=== PATIENT | male | born 2005 | race Hispanic/Latino ===

== ENCOUNTER 2023-08-08 16:55 | Emergency (ER) | payer MEDICAID, OTHER ==
[~2023-08-08] VITALS: Ht 175.3 cm; Wt 90.7 kg
[2023-08-08 17:00] VITALS: BP 126/67; PULSE 62; RESP 14; O2SAT 99
== END 2023-08-08 18:13 | disposition left against medical advice (07) ==
LOC: EDH 16:55
DX: R10.32 Left lower quadrant pain (principal); Z53.21 Procedure and treatment not carried out due to patient leaving prior to being seen by health care provider
CPT/HCPCS: 99281